=== PATIENT | male | born 1990 | race Caucasian/White ===

== ENCOUNTER 2018-09-24 04:09 | Emergency (ER) | payer OTHER ==
--- NOTE | 2018-09-24 04:19 | PDOC ---
History of Present Illness - General Chief Complaint: Toothache Stated Complaint: TOOTHACHE Time Seen by Provider: 09/24/18 04:19 - History of Present Illness Initial Comments: 09/24/18 04:44 28 year old male with right lower molar pain worsening over time, reports that the pain worsened at 1 am. denies facial swelling, fever/ chills. patient reports that he took 1 percocet at 1 am with minimal pain relief. patient reports that he is going to the dentist early this am. Past History - Past Medical History Allergies/Adverse Reactions: Allergies Allergy/AdvReac Type Severity Reaction Status Date / Time No Known Allergies Allergy Verified 09/24/18 04:16 Home Medications: Ambulatory Orders Amox-Tr/K Cl [Augmentin - 875Mg Tablet] 1 tab PO BID #20 tablet 09/24/18 Ibuprofen 600 mg PO Q6H PRN #20 tablet 09/24/18 COPD: No - Immunization History Immunization Up to Date: Yes - Suicide/Smoking/Psychosocial Hx Smoking History: Never smoked Have you smoked in the past 12 months: No Information on smoking cessation initiated: No Hx Alcohol Use: No Drug/Substance Use Hx: No Substance Use Type: None *Physical Exam - Vital Signs Last Vital Signs Temp Pulse Resp BP Pulse Ox 98.7 F 69 17 151/89 100 09/24/18 04:13 09/24/18 04:13 09/24/18 04:13 09/24/18 04:13 09/24/18 04:13 - Physical Exam General Appearance: Yes: Appropriately Dressed HEENT: positive: Other (+ dental caries right lower molar gum tenderness) Moderate Sedation - Procedure Monitoring Vital Signs: Procedure Monitoring Vital Signs Temperature 98.7 F 09/24/18 04:13 Pulse Rate 69 09/24/18 04:13 Respiratory Rate 17 09/24/18 04:13 Blood Pressure 151/89 09/24/18 04:13 O2 Sat by Pulse Oximetry (%) 100 09/24/18 04:13 Medical Decision Making - Medical Decision Making dental pain P: augmentin pain control *DC/Admit/Observation/Transfer Diagnosis at time of Disposition: Tooth ache, Infected dental caries - Discharge Dispostion Disposition: HOME Condition at time of disposition: Stable - Prescriptions Prescriptions: Amox-Tr/K Cl [Augmentin - 875Mg Tablet] 1 tab PO BID #20 tablet Ibuprofen 600 mg PO Q6H PRN #20 tablet PRN Reason: Pain - Referrals - Patient Instructions Printed Discharge Instructions: DI for Dental Pain Additional Instructions: take ibuprofen as prescribed take Augmentin as prescribed follow up with your dentist as soon as possible. - Post Discharge Activity Forms/Work/School Notes: Back to Work
--- NOTE | 2018-09-24 04:22 | PDOC ---
*Physical Exam - Vital Signs Last Vital Signs Temp Pulse Resp BP Pulse Ox 98.7 F 69 17 151/89 100 09/24/18 04:13 09/24/18 04:13 09/24/18 04:13 09/24/18 04:13 09/24/18 04:13 Medical Decision Making - Medical Decision Making 09/24/18 04:21 Patient seen by the advanced practice provider under my direct supervision. Ancillary testing reviewed as necessary. I agree with plan as outlined by the advanced practice provider. *DC/Admit/Observation/Transfer Diagnosis at time of Disposition: Tooth ache - Referrals - Patient Instructions - Post Discharge Activity
[2018-09-24 04:23] VITALS: BP 151/89; PULSE 69; TEMP 98.7; BMI 30.5
[2018-09-24] MEDS ORDERED: LIDOCAINE VISCOUS 2% ORAL/TOP 20 ML UNIT-DOSE CUP MM ONE (04:24)
[2018-09-24] MEDS ORDERED: IBUPROFEN 400 MG TABLET (FP) PO ONE ×2 (04:24→04:34)
[2018-09-24] MEDS ORDERED: AMOX TR/POT CLAV 875MG/125MG TABLETS (FP) PO ONE (04:24)
[2018-09-24] MEDS ORDERED: LIDOCAINE VISCOUS 2% ORAL/TOP 20 ML UNIT-DOSE CUP ONE (04:34)
[2018-09-24] MEDS ORDERED: AMOX TR/POT CLAV 875MG/125MG TABLETS (FP) ONE (04:34)
== END 2018-09-24 05:10 | disposition home or self-care (01) ==
LOC: JER 04:09
DX: K02.9 Dental caries, unspecified (principal)
CPT/HCPCS: 99282-25

== ENCOUNTER 2019-09-28 18:16 | Emergency (ER) | payer SELFPAY ==
[2019-09-28 18:56] VITALS: BP 135/81; PULSE 76; TEMP 97.9; BMI 27.1
--- NOTE | 2019-09-28 18:58 | PDOC ---
Rapid Medical Evaluation Chief Complaint: Back Pain Time Seen by Provider: 09/28/19 18:51 Medical Evaluation: Allergies Allergy/AdvReac Type Severity Reaction Status Date / Time No Known Allergies Allergy Verified 09/28/19 18:51 09/28/19 18:54 This patient had a brief medical evaluation in triage cc:lower back pain x 3 days HPI: Patient reports exacerbation of lower back pain, non radiating intermittently. No numbness or tingling PE: NAD unlabored breathing no mid spinal tenderness, Orders: urinalysis This patient will proceed to main ed for further evaluation Discharge Disposition - Diagnosis Back pain - Referrals - Patient Instructions - Post Discharge Activity
[2019-09-28] MEDS ORDERED: KETOROLAC TROMETHAMINE 60 MG/2 ML VIAL IM ONE (19:17)
[2019-09-28] MEDS ORDERED: KETOROLAC TROMETHAMINE 60 MG/2 ML VIAL ONE (19:28)
[2019-09-28 19:49] LABS: URINE APPEARANCE CLEAR; URINE BILIRUBIN NEGATIVE (NEGATIVE); URINE COLOR YELLOW; URINE GLUCOSE (UA) NEGATIVE (NEGATIVE); URINE KETONE NEGATIVE (NEGATIVE); URINE LEUK ESTERASE NEGATIVE (NEGATIVE); URINE NITRITE NEGATIVE (NEGATIVE); URINE PROTEIN NEGATIVE (NEGATIVE)
--- NOTE | 2019-09-28 19:57 | PDOC ---
History of Present Illness - General Chief Complaint: Back Pain Stated Complaint: LWR BACK PAIN Time Seen by Provider: 09/28/19 18:51 - History of Present Illness Initial Comments: 09/28/19 19:55 29-year-old male presents for evaluation of lower back pain without radicular or systemic symptoms x3 days Past History - Past Medical History Allergies/Adverse Reactions: Allergies Allergy/AdvReac Type Severity Reaction Status Date / Time No Known Allergies Allergy Verified 09/28/19 18:51 Home Medications: Ambulatory Orders Amox-Tr/K Cl [Augmentin - 875Mg Tablet] 1 tab PO BID #20 tablet 09/24/18 Ibuprofen 600 mg PO Q6H PRN #20 tablet 09/24/18 Cyclobenzaprine HCl [Flexeril 10 mg] 10 mg PO HS PRN #10 tablet 09/28/19 Ibuprofen [Motrin -] 600 mg PO TID #30 tablet 09/28/19 COPD: No - Immunization History Immunization Up to Date: Yes - Psycho Social/Smoking Cessation Hx Smoking History: Never smoked Have you smoked in the past 12 months: No Information on smoking cessation initiated: No Hx Alcohol Use: No Drug/Substance Use Hx: No Substance Use Type: None Review of Systems - Review of Systems Constitutional: No: Fever : No: Dysuria, Incontinence Musculoskeletal: Yes: Back Pain *Physical Exam - Vital Signs Last Vital Signs Temp Pulse Resp BP Pulse Ox 97.9 F 76 18 135/81 100 09/28/19 18:51 09/28/19 18:51 09/28/19 18:51 09/28/19 18:51 09/28/19 18:51 - Physical Exam 09/28/19 19:56 Lumbar spine skin color temperature normal range of motion is slightly decreased. No midline tenderness. Moderate bilateral paralumbar musculature spasm and tenderness 5 out of 5 strength bilateral lower extremities without gross sensorimotor deficits thighs and calves are soft and nontender neurovascular intact ED Treatment Course - ADDITIONAL ORDERS Additional order review: Laboratory Results 09/28/19 19:15 Urine Color Yellow Urine Appearance Clear Urine pH 6.0 Ur Specific [place] 1.017 Urine Protein Negative Urine Glucose (UA) Negative Urine Ketones Negative Urine Blood Negative Urine Nitrite Negative Urine Bilirubin Negative Urine Urobilinogen 1.0 Ur Leukocyte Esterase Negative - Medications Given in the ED: ED Medications Discontinued Medications Generic Name Dose Route Start Last Admin Trade Name Freq PRN Reason Stop Dose Admin Ketorolac Tromethamine 60 mg 09/28/19 19:17 09/28/19 19:35 Toradol Injection - IM 09/28/19 19:18 60 mg ONCE ONE Administration Medical Decision Making - Medical Decision Making 09/28/19 19:56 Toradol in the emergency room Flexeril and Motrin at home follow-up with spine surgery Discharge - Discharge Information Problems reviewed: Yes Clinical Impression/Diagnosis: Back pain Condition: Stable Disposition: HOME - Admission No - Follow up/Referral Referrals: Mauri Bay MD, [facility] [Staff Physician] - - Patient Discharge Instructions Additional Instructions: You were given an injection of a long-acting anti-inflammatory in the emergency room. Do not start the prescription strength Motrin until tomorrow at this time. You may start the muscle relaxer 1 tablet before bedtime this evening. Will make you sleepy. Take before bedtime. Start the Motrin tomorrow at this time. Return to the emergency room for worsening symptoms and without fail follow-up with orthopedic spine surgery and neurosurgery in 2 to 3 days for further evaluation and treatment options. - Post Discharge Activity
== END 2019-09-28 19:59 | disposition home or self-care (01) ==
LOC: JER 18:16 → JERFT 18:16
PROC: 3E0233Z Introduction of Anti-inflammatory into Muscle, Percutaneous Approach (ICD-10-PCS; principal; 2019-09-28)
DX: M54.5 Low back pain (principal)
CPT/HCPCS: 81003; 99284-25